=== PATIENT | female | born 1935 | race Caucasian/White ===

== ENCOUNTER 2020-08-11 11:54 | Outpatient (CLI) | payer MEDICARE, BC ==
[2020-08-11 21:58] LABS: SARS-CoV-2 PCR by NAA Not Detected (NotDetected)
== END 2020-08-11 11:55 | disposition home or self-care (01) ==
LOC: CSHLAB 11:54
PROVIDERS: ATTEND Internal Medicine Critical Care Medicine
DX: Z20.822 Contact with and (suspected) exposure to COVID-19 (principal); J44.9 Chronic obstructive pulmonary disease, unspecified
CPT/HCPCS: 87635; U0003; U0005